=== PATIENT | male | born 1955 | race Caucasian/White ===

== ENCOUNTER 2016-06-05 10:38 | Emergency (ER) | payer MEDICARE ==
[2013-10-28 12:01] VITALS: BMI 26.6
[~2016-06-05 10:38] MED LIST: ASPIRIN EC81 M1 PO; CYCLOBENZAPRINE10 MG PO; HYDROCODONE-APA1 TAB PO; LIPITOR40 MG PO; NEXIUM40 MG PO; PLAVIX75 MG PO; PROAIR HFA8.5 GM INH; PYRIDOXINE HCL100 MG PO; TOPROL XL25 MG PO; VITAMIN D3 PO; XANAX2 MG PO
[2016-06-05 11:34] LABS: BASOPHILS 0.5 % (0.0-2.0); HEMATOCRIT 45.7 % (42.0-54.0); HEMOGLOBIN 15.4 g/dL (13.5-17.5); IMMATURE GRANULOCYTES 0.2 % (0-5); LYMPHOCYTES 25.7 % (15-50); MCHC 33.7 g/dL (31.0-37.0); MCV 98.1 fL (80.0-100.0); MEAN PLATELET VOLUME 11.2 fL (7.4-10.4); MONOCYTES 10.8 % (2-11); NEUTROPHILS 58.8 % (40-80); PLATELET COUNT 230 10x3/uL (130-400); RBC 4.66 10x6/uL (4.20-6.10); RDW 12.4 % (11.5-14.5); WBC 10.1 10x3/uL (4.8-10.8)
[2016-06-05 11:48] LABS: ALBUMIN 3.6 g/dL (3.4-5.0); ALKALINE PHOSPHATASE 98 U/L (46-116); ALT (SGPT) 33 U/L (10-68); CALC OSMOLALITY 269 mosm/kg (275-300); CALCIUM 9.3 mg/dL (8.5-10.1); CARBON DIOXIDE 32.5 mmol/L (21.0-32.0); CHLORIDE - SERUM 99 mmol/L (98-107); CREATININE - SERUM 1.2 mg/dL (0.6-1.3); GLUCOSE 88 mg/dL (74-106); POTASSIUM - SERUM 4.2 mmol/L (3.5-5.1); PROTEIN - SERUM 8.1 g/dL (6.4-8.2); SODIUM 136 mmol/L (136-145); UREA NITROGEN 10 mg/dL (7-18); eGFR NON AFRICAN AMERICAN 66 mL/min (90-120)
[2016-06-05 11:59] LABS: CHOL - HDL RATIO 4.8 ratio (2.3-4.9); CHOLESTEROL, TOTAL 181 mg/dL (0-200); CKMB 2.2 U/L (0.0-3.6); CREATINE KINASE 122 UL (21-232); HDL CHOLESTEROL 38 mg/dL (32-96); LDL CHOLESTEROL 105 mg/dL (0-100); LDL-HDL RATIO 2.8 ratio (1.5-3.5); TRIGLYCERIDE 191 mg/dL (30-200); TROPONIN-I < 0.017 ng/mL (0.000-0.060)
== END 2016-06-05 14:00 | disposition home or self-care (01) ==
LOC: D.ER 10:38
PROVIDERS: Emergency Medicine
DX: J44.1 Chronic obstructive pulmonary disease with (acute) exacerbation (principal); J44.9 Chronic obstructive pulmonary disease, unspecified; K21.9 Gastro-esophageal reflux disease without esophagitis; I10 Essential (primary) hypertension; E78.5 Hyperlipidemia, unspecified; F17.200 Nicotine dependence, unspecified, uncomplicated

== ENCOUNTER → 2018-10-23 06:40 | Outpatient (CLI) | payer MEDICARE | END | disposition home or self-care (01) | LOC: D.CT 06:40 | DX: R04.2 Hemoptysis (principal); J44.9 Chronic obstructive pulmonary disease, unspecified ==

== ENCOUNTER → 2018-11-20 08:05 | Outpatient (CLI) | payer MEDICARE ==
[2013-10-28 12:01] VITALS: BMI 26.6
== END | disposition home or self-care (01) ==
LOC: D.CT 08:05
PROVIDERS: ATTEND Family Medicine
DX: R91.8 Other nonspecific abnormal finding of lung field (principal)

== ENCOUNTER → 2019-02-16 09:53 | Outpatient (CLI) | payer MEDICARE ==
[2013-10-28 12:01] VITALS: BMI 26.6
== END | disposition home or self-care (01) ==
LOC: D.CT 09:53
PROVIDERS: ATTEND Family Medicine
DX: R91.1 Solitary pulmonary nodule (principal)

== ENCOUNTER → 2019-09-16 08:58 | Outpatient (CLI) | payer MEDICARE ==
[2013-10-28 12:01] VITALS: BMI 26.6
== END | disposition home or self-care (01) ==
LOC: D.RAD 09-14 09:00 → D.CT 08:58
PROVIDERS: ATTEND Otolaryngology
DX: R13.10 Dysphagia, unspecified (principal); R04.2 Hemoptysis

== ENCOUNTER 2019-09-23 10:37 | Outpatient (CLI) | payer MEDICARE ==
[~2019-09-23] VITALS: Ht 175.3 cm; Wt 78.0 kg
[2019-09-23 11:07] LABS: BASOPHILS 0.3 % (0-2); EOSINOPHILS 1.4 % (0-7); HEMATOCRIT 47.6 % (42.0-54.0); HEMOGLOBIN 15.4 g/dL (13.5-17.5); IMMATURE GRANULOCYTES 0.4 % (0-5); LYMPHOCYTES 18.3 % (15-50); MCH 30.6 pg (26.0-34.0); MCHC 32.4 g/dL (31.0-37.0); MCV 94.6 fL (80.0-100.0); MONOCYTES 8.5 % (2-11); NEUTROPHILS 71.1 % (40-80); PLATELET COUNT 218 10x3/uL (130-400); RBC 5.03 10x6/uL (4.20-6.10); RDW 13.1 % (11.5-14.5); WBC 10.7 10x3/uL (4.8-10.8)
[2019-09-23 11:17] LABS: INR 1.09 (0.85-1.17)
[2019-09-23] MEDS ORDERED: BAYER CHEWABLE81 MG PO (11:49)
[2019-09-23] MEDS ORDERED: PROTONIX40 MG PO (11:50)
[2019-09-23] MEDS ORDERED: LISINOPRIL5 MG PO (11:51)
[2019-09-23] MEDS ORDERED: ADVAIR 250-501 EAC1 INH (11:51)
[2019-09-23] MEDS ORDERED: TRIAMTERENE (11:52)
[2019-09-23 11:59] VITALS: BP 97/54; Ht 175.3 cm; Wt 78.0 kg
--- NOTE | 2019-09-23 15:37 | NUR ---
1525 ALL DC CRITERIA MET. ALL DC INSTRUCTIONS GIVEN. SPOKE WITH DR SHAH ABOUT CARDIOLOGY CONSULT. CONSULT CANCELLED PER DR SHAH AND APPOINTMENT MADE FOR OFFICE VISIT WITH DR ALCANTAR. IV REMOVED WT [facility] INTACT. DC'D HOME. TAKEN OUT VIA W/C AND ASSISTED TO CAR WITH SISTER. ADVISED TO CALL OR COME BACK IF ANY PROBLEMS.
== END 2019-09-23 15:29 | disposition home or self-care (01) ==
LOC: D.OPS 10:37
PROVIDERS: ATTEND Internal Medicine Pulmonary Disease
DX: R91.8 Other nonspecific abnormal finding of lung field (principal); R11.10 Vomiting, unspecified; R04.2 Hemoptysis; R63.4 Abnormal weight loss; R13.10 Dysphagia, unspecified; Z68.25 Body mass index [BMI] 25.0-25.9, adult; E66.3 Overweight; J44.9 Chronic obstructive pulmonary disease, unspecified; I10 Essential (primary) hypertension

== ENCOUNTER → 2019-10-02 07:38 | Outpatient (CLI) | payer MEDICARE ==
[2019-09-23 11:59] VITALS: BMI 25.4
[~2019-10-02 07:38] MED LIST changes: +ADVAIR 250-501 EAC1 INH; +BAYER CHEWABLE81 MG PO; +LISINOPRIL5 MG PO; +PROTONIX40 MG PO; +TRIAMTERENE
== END | disposition home or self-care (01) ==
LOC: D.MRI 07:38
PROVIDERS: ATTEND Internal Medicine Hematology & Oncology
DX: C34.81 Malignant neoplasm of overlapping sites of right bronchus and lung (principal); C77.9 Secondary and unspecified malignant neoplasm of lymph node, unspecified

== ENCOUNTER → 2019-10-06 13:26 | Outpatient (CLI) | payer MEDICARE ==
[2019-09-23 11:59] VITALS: BMI 25.4
--- NOTE | 2019-10-07 08:24 | EC ---
PATIENT:OG ROCHA DATE OF SERVICE: 10/06/19 SEX: M MEDICAL RECORD: [id number] DATE OF : 55 LOCATION:[facility] AGE OF PATIENT: 64 ADMISSION DATE: 10/06/19 REFERRING PHYSICIAN: INTERPRETING PHYSICIAN: JESSICA ALCANTAR MD ECHOCARDIOGRAM REPORT ECHO CHARGES 4 ECHO COMPLETE Date: 10/06/19 CLINICAL DIAGNOSIS: MURMUR/ABNORMAL EKG H/O HTN/CAD ECHOCARDIOGRAPHIC MEASUREMENTS (adult normal given) AC root (d.<3.7cm) 3.8 cm LV Septum d (<1.2 cm> 0.9 cm Valve Excursion 1.9 cm LV Septum (systole) 1.4 cm Left Atria (s.<4.0cm> 3.8 cm LVPW d(<1.2cm) 1.0 cm RV (d.<2.3cm) 2.3 cm LVPW (sytole) 1.5 cm LV diastole(<5.6CM) 4.8 cm MV E-F(>70mm/sec) cm LV systole 2.9 cm LVOT Diameter 1.9 cm MV exc.(>10mm) cm Est.ejection fraction (50-75%) % DOPPLER: LVIT cm/sec A 81.0 cm/sec E 62.0 cm/sec LA cm/sec RVSP 17.0 mmHg LVOT 95.0 cm/sec AOP1/2T m/s Asc. Ao 100 cm/sec RVOT 71.0 cm/sec RA cm/sec PA 88.0 cm/sec AV Gradient Peak 4.0 mmHg AV Mean 2.3 mmHg AV Area 3.1 cm MV Gradient Peak 3.9 mmHg MV Mean 1.5 mmHg MV Area cm COMMENTS: OP - HC Extension Work Instructor: 1 ABRAN ISHPEMING Monitor Tech: 3 Dr. [place] TAPE# PACS Pericardial Effusion N DATE OF SERVICE: Adequate 2D, color flow imaging, spectral Doppler and M-mode. No LVH. LV internal dimensions are normal. LV is globally hypokinetic with reduced EF, estimated EF 35% to 40%. Aortic valve is tricuspid. No evidence of stenosis by Doppler interrogation. Left atrium is normal at 3.8 cm. Mitral valve shows no prolapse. Trace MR. Right-sided chambers are grossly normal. Moderate TR. ECHOCARDIOGRAM REPORT [id number] OG ROCHA TRANSINT:[id number] Voice Confirmation ID: [id number] DOCUMENT ID: [id number] JESSICA ALCANTAR MD at 0824 CC: [id number] DICTATION DATE: 10/06/19 1501 DRILLING PLANT OPERATOR: 10/06/19 2208 DEP CLI 10/06/19 [place] [id number] [place] [id number]
== END | disposition home or self-care (01) ==
LOC: D.HCCECHO 13:26
PROVIDERS: ATTEND Internal Medicine Interventional Cardiology
DX: I10 Essential (primary) hypertension (principal)